=== PATIENT | female | born 1995 | race Caucasian/White ===

== ENCOUNTER 2020-12-24 20:12 | Emergency (ER) | payer OTHER ==
[~2020-12-24] VITALS: Ht 165.1 cm; Wt 56.7 kg
[2020-12-25] MEDS ORDERED: ZYRTEC10 MG PO (00:59)
[2020-12-25] MEDS ORDERED: MEDROLPACK PO (00:59)
[2020-12-25] MEDS ORDERED: MUCINEX DM ER1 EAC1 PO (00:59)
[2020-12-25] MEDS ORDERED: XOPENEX HFA15 GM IH (00:59)
== END 2020-12-25 01:25 | disposition home or self-care (01) ==
LOC: ER 20:12
DX: J06.9 Acute upper respiratory infection, unspecified (principal); J30.89 Other allergic rhinitis; Z11.52 Encounter for screening for COVID-19